=== PATIENT | male | born 1945 | race Caucasian/White ===

== ENCOUNTER 2016-11-19 15:51 | Emergency (ER) | payer OTHER ==
[~2016-11-19] VITALS: Ht 170.2 cm; Wt 67.1 kg
[2016-11-19 15:52] VITALS: BP 154/84
[2016-11-19] MEDS ORDERED: ATORVASTATIN CA40 MG PO (15:54)
[2016-11-19] MEDS ORDERED: KEFLEX500 MG PO (16:42)
[2016-11-19] MEDS ORDERED: IBUPROFEN 600600 M1 PO (16:42)
== END 2016-11-19 18:08 | disposition home or self-care (01) ==
LOC: ER 15:51
DX: S81.811A Laceration without foreign body, right lower leg, initial encounter (principal); F10.99 Alcohol use, unspecified with unspecified alcohol-induced disorder; W26.0XXA Contact with knife, initial encounter; Y93.89 Activity, other specified; Y92.89 Other specified places as the place of occurrence of the external cause; Y99.8 Other external cause status